=== PATIENT | male | born 2000 | race Caucasian/White ===

== ENCOUNTER 2023-05-27 08:04 | Emergency (ER) | payer SELFPAY ==
[2023-05-27 08:26] VITALS: TEMP 97.5
[2023-05-27] MEDS ORDERED: TORAdol 30 mg Injection IV ONE (09:07)
[2023-05-27] MEDS ORDERED: Sodium Chloride 0.9% 1000 ML 1,000 ML IV STA ×2 (09:07→10:26)
[2023-05-27] MEDS ORDERED: TORAdol 30 mg Injection ONE (09:12)
[2023-05-27] MEDS ORDERED: Sodium Chloride 0.9% 1000 ML 1,000 ML ONE ×2 (09:12→10:26)
[2023-05-27 09:25] LABS: Absolute Neutrophil Ct (ANC) 5.56 x10^3/uL (1.4-6.9); BASOPHIL % 0.7 % (0.0-0.4); Basophil (Absolute #) 0.07 x10^3/uL (0-0.4); Eosinophil % 1.8 % (0.00-5.0); Eosinophil (Absolute #) 0.17 x10^3/uL (0-0.5); Hematocrit 51.5 % (42-50); Hemoglobin 17.8 g/dL (12.5-18.0); IMMATURE GRAN # 0.04 x10^3u/L (0.00-0.03); IMMATURE GRAN % 0.4 % (0.00-0.4); Lymphocytes % 32.1 % (24.0-44.0); Mean Cell Volume 87.9 fL (78-100); Mean Corpuscular Hemoglobin 30.4 pg (26-32); Mean Corpuscular Hgb Concent. 34.6 g/dL (32-36); Mean Platelet Volume 10.5 fL (7.5-11.0); Monocyte (Absolute #) 0.73 x10^3/uL (0.0-1.3); Monocytes % 7.5 % (0.0-12.0); Neutrophil % 57.5 % (36.0-66.0); Platelet Count 235 x10^3/uL (150-450); Red Blood Count 5.86 x10^6/uL (4.1-5.6); Red Cell Distribution Width 11.9 % (11.5-14.0); White Blood Count 9.7 x10^3/uL (4.0-10.5)
[2023-05-27 09:35] LABS: ADD URINE CULTURE? NO (NO); Appearance Clear (Clear); Bacteria None Seen /HPF (None Seen); Bilirubin Negative (Negative); Blood Negative (Negative); Epithelial Cells None Seen /HPF (None Seen); Glucose, Urine >=1000 mg/dL (Negative); Hyaline Casts NONE SEEN /LPF (0-2); Ketones Negative (Negative); Leukocyte Esterase Negative (Negative); Nitrite Negative (Negative); Ph 5.5 (4.6-8.0); Protein,Urine Dip Negative (Negative); RBC 0-2 /HPF (0-5); Specific Gravity >=1.030 (1.005-1.030); Urobilinogen 0.2 mg/dL (0.2); WBC 0-2 /HPF (0-5)
[2023-05-27 09:40] LABS: ALBUMIN 4.9 g/dL (3.5-5.0); ANION GAP 20.2 MEQ/L (5-15); Calcium 9.7 mg/dL (8.4-10.2); Creatinine 1 0.62 mg/dL (0.66-1.25); EST GLOMERULAR FILTRATION RATE 138.6 ML/MIN; Potassium 3.6 mmol/L (3.5-5.1); Total Protein 8.5 g/dL (6.3-8.2)
--- NOTE | 2023-05-27 09:51 | ERPHSYRPT ---
- History of Present Illness Time Seen by Provider: 05/27/23 08:10 Historian: patient Exam Limitations: no limitations Patient Subjective Stated Complaint: C/O intermittent right flank pain for the past 2-3 days. Describes as pulsating and shooting. Triage Nursing Assessment: Patient ambulated back to ER without difficulties. No SOB. NO cough. Skin tone normal. Patient is alert and oriented. WORTHY WNL. Abdomen is soft with bowel sounds present. Patient denies pain or tenderness with palpation. Denies injury or trauma. Physician History: Patient is a 22-year-old male presents to our ED with his father for evaluation of intermittent right flank pain. Pain started approximately 2 to 3 days ago. Pain has been intermittent. Patient describes his pain as a pulsating sensation. No trauma no fever. No nausea vomiting or diaphoresis. Patient denies a history of the same. Father at bedside. He reports patient has a history of hypertension. Patient is otherwise healthy. They voiced no other complaints or concerns at this time. Portions of this note were created with voice recognition technology. There may be grammatical, spelling, punctuation or sound alike errors Timing/Duration: day(s) (2 to 3 days ago) Activities at Onset: none Quality: aching, other (Pulsating sensation) Abdominal Pain Onset Location: flank Pain Radiation: no radiation Severity of Pain-Max: moderate Severity of Pain-Current: mild Modifying Factors: Improves With: nothing Associated Symptoms: denies symptoms Previous symptoms: no prior history Allergies/Adverse Reactions: No Known Drug Allergies Allergy (Verified 05/27/23 08:12) Home Medications: No Reportable Medications [No Reported Medications] 05/27/23 [History] Hx Tetanus, Diphtheria Vaccination/Date Given: Yes Hx Influenza Vaccination/Date Given: No Hx Pneumococcal Vaccination/Date Given: No Immunizations Up to Date: Yes Travel Risk - International Travel Have you traveled outside of the country in past 3 weeks: No - Coronavirus Screening Are you exhibiting any of the following symptoms?: Yes Symptoms: Vomiting/Diarrhea Close contact with a COVID-19 positive Pt in past 14-21 Days: No - Vaccine Status Have you recieved a Covid-19 vaccination: No - Review of Systems Constitutional: No Symptoms, No Fever, No Chills Eyes: No Symptoms Ears, Nose, & Throat: No Symptoms Respiratory: No Symptoms, No Cough, No Dyspnea Cardiac: No Symptoms, No Chest Pain, No Edema, No Syncope Abdominal/Gastrointestinal: No Symptoms, No Abdominal Pain, No Nausea, No Vomiting, No Diarrhea Genitourinary Symptoms: No Symptoms, No Dysuria Musculoskeletal: No Symptoms, No Back Pain, No Neck Pain Skin: No Symptoms, No Rash Neurological: No Symptoms, No Dizziness, No Focal Weakness, No Sensory Changes Psychological: No Symptoms Endocrine: No Symptoms Hematologic/Lymphatic: No Symptoms Immunological/Allergic: No Symptoms All Other Systems: Reviewed and Negative - Past Medical History Pertinent Past Medical History: Yes Respiratory History: Asthma Other Medical History: lots of ear infections as a child - Past Surgical History Past Surgical History: Yes Other Surgical History: tubes in ears - Social History Smoking Status: Never smoker Exposure to second hand smoke: No Drug Use: none Patient Lives Alone: No - Nursing Vital Signs Nursing Vital Signs: Initial Vital Signs Temperature 97.5 F 05/27/23 08:04 Pulse Rate 100 H 05/27/23 08:04 Respiratory Rate 15 05/27/23 08:04 Blood Pressure 170/121 05/27/23 08:04 O2 Sat by Pulse Oximetry 98 05/27/23 08:04 Pain Scale Pain Intensity 0 - Physical Exam General Appearance: no apparent distress, alert Eye Exam: PERRL/EOMI, eyes nml inspection Ears, Nose, Throat Exam: normal ENT inspection, pharynx normal, moist mucous membranes Neck Exam: normal inspection, non-tender, supple, full range of motion Respiratory Exam: normal breath sounds, lungs clear, airway intact, No respiratory distress Cardiovascular Exam: regular rate/rhythm, normal heart sounds, normal peripheral pulses Gastrointestinal/Abdomen Exam: soft, No tenderness, No mass Back Exam: normal inspection, normal range of motion, No CVA tenderness, No vertebral tenderness Extremity Exam: normal inspection, normal range of motion, pelvis stable Neurologic Exam: alert, oriented x 3, cooperative, normal mood/affect, nml cerebellar function, sensation nml, No motor deficits Skin Exam: normal color, warm, dry SpO2 Interpretation: normal SpO2: 96 O2 Delivery: Room Air - Course Nursing assessment & vital signs reviewed: Yes - CT Exams Abdomen/Pelvis CT Interpretation: Tele-radiologist Report (Mild diffuse fatty liver. No renal calculus or ureteral lithiasis observed. CT abdomen pelvis otherwise negative.) Ordered Tests: Active Orders 24 hr Category Date Time Status IV Insertion STAT Care 05/27/23 09:07 Active ABDOMEN AND PELVIS W/0 CONTRAS [CT] Stat Exams 05/27/23 09:08 Completed CBC W DIFF Stat Lab 05/27/23 09:07 Completed CMP Stat Lab 05/27/23 08:28 Completed CMP Stat Lab 05/27/23 11:30 Completed LIPASE Stat Lab 05/27/23 08:28 Completed TROPONIN Q4H Lab 05/27/23 08:28 Completed TROPONIN Q4H Lab 05/27/23 13:15 Ordered TROPONIN Q4H Lab 05/27/23 17:15 Ordered UA W/RFX UR CULTURE Stat Lab 05/27/23 09:08 Completed Medication Summary Discontinued Medications Generic Name Dose Route Start Last Admin Trade Name Freq PRN Reason Stop Dose Admin Sodium Chloride 1,000 mls @ 999 mls/hr 05/27/23 09:07 05/27/23 10:17 Sodium Chloride 0.9% 1000 Ml IV 05/27/23 10:07 Infused .Q1H1M STA Infusion Sodium Chloride Confirm 05/27/23 09:12 Sodium Chloride 0.9% 1000 Ml Administered 05/27/23 09:13 Dose 1,000 mls @ ud .ROUTE .STK-MED ONE Sodium Chloride 1,000 mls @ 999 mls/hr 05/27/23 10:26 05/27/23 11:29 Sodium Chloride 0.9% 1000 Ml IV 05/27/23 11:26 Infused .Q1H1M STA Infusion Sodium Chloride Confirm 05/27/23 10:26 Sodium Chloride 0.9% 1000 Ml Administered 05/27/23 10:27 Dose 1,000 mls @ ud .ROUTE .STK-MED ONE Ketorolac Tromethamine 30 mg 05/27/23 09:07 05/27/23 09:17 Ketorolac Tromethamine 30 Mg/Ml Inj IV 05/27/23 09:08 30 mg STAT ONE Administration Ketorolac Tromethamine Confirm 05/27/23 09:12 Ketorolac Tromethamine 30 Mg/Ml Inj Administered 05/27/23 09:13 Dose 30 mg .ROUTE .STK-MED ONE Lab/Rad Data: Laboratory Result Diagrams 05/27/23 09:07 05/27/23 11:30 Laboratory Results 05/27/23 05/27/23 05/27/23 Range/Units 11:30 09:08 09:07 WBC 9.7 (4.0-10.5) x10^3/uL RBC 5.86 H (4.1-5.6) x10^6/uL Hgb 17.8 (12.5-18.0) g/dL Hct 51.5 H (42-50) % MCV 87.9 (78-100) fL MCH 30.4 (26-32) pg MCHC 34.6 (32-36) g/dL RDW 11.9 (11.5-14.0) % Plt Count 235 (150-450) x10^3/uL MPV 10.5 (7.5-11.0) fL Gran % 57.5 (36.0-66.0) % Immature Gran % (Auto) 0.4 (0.00-0.4) % Nucleat RBC Rel Count 0.0 (0.00-0.1) % Eos # (Auto) 0.17 (0-0.5) x10^3/uL Immature Gran # (Auto) 0.04 H (0.00-0.03) x10^3u/L Absolute Lymphs (auto) 3.10 (1.0-4.6) x10^3/uL Absolute Monos (auto) 0.73 (0.0-1.3) x10^3/uL Absolute Nucleated RBC 0.00 (0.00-0.01) x10^3u/L Lymphocytes % 32.1 (24.0-44.0) % Monocytes % 7.5 (0.0-12.0) % Eosinophils % 1.8 (0.00-5.0) % Basophils % 0.7 (0.0-0.4) % Absolute Granulocytes 5.56 (1.4-6.9) x10^3/uL Basophils # 0.07 (0-0.4) x10^3/uL Sodium 137 (137-145) mmol/L Potassium 3.9 (3.5-5.1) mmol/L Chloride 105 (98-107) mmol/L Carbon Dioxide 24 (22-30) mmol/L Anion Gap 12.4 (5-15) MEQ/L BUN 8 L (9-20) mg/dL Creatinine 0.49 L (0.66-1.25) mg/dL Estimated GFR 148.8 ML/MIN Glucose 258 H (74-106) mg/dL Calcium 8.6 (8.4-10.2) mg/dL Total Bilirubin 1.90 H (0.2-1.3) mg/dL AST 25 (17-59) U/L ALT 44 (0-50) U/L Alkaline Phosphatase 96 (38-126) U/L Troponin I (0.000-0.034) ng/mL Serum Total Protein 7.0 (6.3-8.2) g/dL Albumin 4.0 (3.5-5.0) g/dL Lipase (23-300) U/L Urine Color Yellow (Yellow) Urine Appearance Clear (Clear) Urine pH 5.5 (4.6-8.0) Ur Specific [place] >=1.030 A (1.005-1.030) Urine Protein Negative (Negative) Urine Glucose (UA) >=1000 A (Negative) mg/dL Urine Ketones Negative (Negative) Urine Blood Negative (Negative) Urine Nitrite Negative (Negative) Urine Bilirubin Negative (Negative) Urine Urobilinogen 0.2 (0.2) mg/dL Ur Leukocyte Esterase Negative (Negative) U Hyaline Cast (Auto) NONE SEEN (0-2) /LPF Urine Microscopic RBC 0-2 (0-5) /HPF Urine Microscopic WBC 0-2 (0-5) /HPF Ur Epithelial Cells None Seen (None Seen) /HPF Urine Bacteria None Seen (None Seen) /HPF Urine Culture Reflexed NO (NO) 05/27/23 05/27/23 Range/Units 08:28 08:28 WBC (4.0-10.5) x10^3/uL RBC (4.1-5.6) x10^6/uL Hgb (12.5-18.0) g/dL Hct (42-50) % MCV (78-100) fL MCH (26-32) pg MCHC (32-36) g/dL RDW (11.5-14.0) % Plt Count (150-450) x10^3/uL MPV (7.5-11.0) fL Gran % (36.0-66.0) % Immature Gran % (Auto) (0.00-0.4) % Nucleat RBC Rel Count (0.00-0.1) % Eos # (Auto) (0-0.5) x10^3/uL Immature Gran # (Auto) (0.00-0.03) x10^3u/L Absolute Lymphs (auto) (1.0-4.6) x10^3/uL Absolute Monos (auto) (0.0-1.3) x10^3/uL Absolute Nucleated RBC (0.00-0.01) x10^3u/L Lymphocytes % (24.0-44.0) % Monocytes % (0.0-12.0) % Eosinophils % (0.00-5.0) % Basophils % (0.0-0.4) % Absolute Granulocytes (1.4-6.9) x10^3/uL Basophils # (0-0.4) x10^3/uL Sodium 136 L (137-145) mmol/L Potassium 3.6 (3.5-5.1) mmol/L Chloride 95 L (98-107) mmol/L Carbon Dioxide 24 (22-30) mmol/L Anion Gap 20.2 H (5-15) MEQ/L BUN 9 (9-20) mg/dL Creatinine 0.62 L (0.66-1.25) mg/dL Estimated GFR 138.6 ML/MIN Glucose 377 H (74-106) mg/dL Calcium 9.7 (8.4-10.2) mg/dL Total Bilirubin 2.00 H (0.2-1.3) mg/dL AST 29 (17-59) U/L ALT 54 H (0-50) U/L Alkaline Phosphatase 120 (38-126) U/L Troponin I < 0.012 (0.000-0.034) ng/mL Serum Total Protein 8.5 H (6.3-8.2) g/dL Albumin 4.9 (3.5-5.0) g/dL Lipase 66 (23-300) U/L Urine Color (Yellow) Urine Appearance (Clear) Urine pH (4.6-8.0) Ur Specific [place] (1.005-1.030) Urine Protein (Negative) Urine Glucose (UA) (Negative) mg/dL Urine Ketones (Negative) Urine Blood (Negative) Urine Nitrite (Negative) Urine Bilirubin (Negative) Urine Urobilinogen (0.2) mg/dL Ur Leukocyte Esterase (Negative) U Hyaline Cast (Auto) (0-2) /LPF Urine Microscopic RBC (0-5) /HPF Urine Microscopic WBC (0-5) /HPF Ur Epithelial Cells (None Seen) /HPF Urine Bacteria (None Seen) /HPF Urine Culture Reflexed (NO) - Progress Progress: improved Progress Note: 22-year-old male presents to our ED for evaluation of abdominal pain. CT abdomen pelvis sensory nonremarkable. Laboratory workup reveals a glucose of 377 with an anion gap of 20. Patient's blood pressure was observed to be elevated. Urinalysis revealed dehydration with an elevated specific gravity. Patient received 2 L normal saline. Anion gap improved to 12.4. Blood sugar decreased to 258. Patient reassessed. He is asymptomatic. I spoke to Dr. Govea patient's primary care doctor at 1230. She will see patient in the office tomorrow. Per her request we held off on metformin. Patient agrees to follow-up tomorrow as discussed. He voices no other complaints or concerns at this time. Portions of this note were created with voice recognition technology. There may be grammatical, spelling, punctuation or sound alike errors Complexity of problems addressed is moderate acute complicated No critical care time Complex of data reviewed and analyzed is extensive. Test ordered test reviewed. Results analyzed and correlated clinically. Management discussed with patient's primary care provider Dr. Govea who will see patient in the office tomorrow. Risk of complication and or risk of morbidity/mortality of patient management is low. Time spent to discharge patient is approximately 10 minutes. Vital stable. Plan of care established for shared decision making. No social determinants of health present impede follow-up. Portions of this note were created with voice recognition technology. There may be grammatical, spelling, punctuation or sound alike errors 05/27/23 12:[address] Other (Hilario at 12:30 PM) Will see patient in: office Counseled pt/family regarding: lab results, diagnosis, need for follow-up, rad results - Departure Departure Disposition: Home Clinical Impression: Dehydration, Glucosuria, Hypertension, High anion gap metabolic acidosis, Fatty liver Condition: Stable Critical Care Time: No Referrals: DOCTOR,NO FAMILY [Primary Care Provider] - Follow up/PCP as directed DARSHAN GOVEA DO [ACTIVE STAFF] - Follow up/PCP as directed Additional Instructions: There is a free diabetic education class here at [facility] on 08/14/23 from 1pm to 3pm. Contact Jo Ann Gutierrez to attend. Number [phone] extension [phone]. Discharge/Care Plan RONALD GARIBAY was seen on 05/27/23 in the Emergency Room. The patient was counseled regarding Diagnosis,Lab results, Imaging studies, need for follow up and when to return to the Emergency Room. Prescriptions given: Discharge Note I have spoken with the patient and/or caregivers. I have explained the patient's condition, diagnosis and treatment plan based on the information available to me at this time. I have answered the patient's and/or caregiver's questions and addressed any concerns. The patient and/or caregivers have as good understanding of the patient's diagnosis, condition and treatment plan as can be expected at this point. The vital signs have been stable. The patient's condition is stable and appropriate for discharge from the emergency department. The patient will pursue further outpatient evaluation with the primary care physician or other designated or consulting physician as outlined in the discharge instructions. The patient and/or caregivers are agreeable to this plan of care and follow-up instructions have been explained in detail. The patient and/or caregivers have received these instruction. The patient/and or caregivers are aware that any significant change in condition or worsening of symptoms should prompt an immediate return to this or the closest emergency department or call 911.
--- NOTE | 2023-05-27 09:56 | XRAY ---
Indication: Right lower quadrant pain. Vomiting and diarrhea. Multiple contiguous axial images obtained through the abdomen and pelvis without contrast using renal stone protocol. Comparison: None Lung bases clear. Heart not enlarged. No renal calculus or evidence for obstructive uropathy in either system. Noncontrasted stomach and bowel loops appear nonobstructed with normal appearing appendix. Mild diffuse fatty liver. No free fluid/air. Remaining liver, gallbladder, pancreas, spleen, adrenal glands, kidneys, ureters, bladder, and aorta are unremarkable for noncontrast exam. Osseous structures intact. Impression: 1. Negative renal calculus or evidence for obstructive uropathy. 2. Mild fatty liver. 3. Remaining CT abdomen/pelvis without contrast exam is negative.
[2023-05-27 10:37] VITALS: RESP 18
[2023-05-27 11:55] LABS: ANION GAP 12.4 MEQ/L (5-15); BILIRUBIN,TOTAL 1.9 mg/dL (0.2-1.3); Calcium 8.6 mg/dL (8.4-10.2); Creatinine 1 0.49 mg/dL (0.66-1.25); EST GLOMERULAR FILTRATION RATE 148.8 ML/MIN; Potassium 3.9 mmol/L (3.5-5.1)
[2023-05-27 12:03] VITALS: BP 162/104; PULSE 84
[2023-05-27 12:35] VITALS: O2SAT 96
== END 2023-05-27 12:43 | disposition home or self-care (01) ==
LOC: ED 08:04
DX: E86.0 Dehydration (principal); R81 Glycosuria; I10 Essential (primary) hypertension; E87.20 Acidosis, unspecified; K76.0 Fatty (change of) liver, not elsewhere classified; R10.9 Unspecified abdominal pain; Z28.310 Unvaccinated for COVID-19
CPT/HCPCS: 36000; 36415; 74176; 80053; 81001; 83690; 84484; 85025; 96360; 96361; 96374; 99284; J1885

== ENCOUNTER 2023-12-20 08:34 | Emergency (ER) | payer OTHER ==
--- NOTE | 2023-12-20 08:39 | ERPHSYRPT ---
- History of Present Illness Time Seen by Provider: 12/20/23 08:38 Source: patient Exam Limitations: no limitations Physician History: The patient presents after ingesting a handful of their 10mg lisinopril tablets approximately 50 minutes prior to arrival. They report feeling 'really hot' but deny chest pain, headache, nausea, and vomiting. The patient has been experie ncing significant life stressors, including their girlfriend being evicted by his father. They admit to having had suicidal thoughts in the past but deny previous suicide attempts. The patient has not eaten or drunk anything since midnight the previous night. When is asked if patient currently has SI he states he is unsure. Patient is willing to talk to telepsych. Timing/Duration: today Severity of Symptoms-Max: mild Severity of Symptoms-Current: mild Context related to: significant other, living circumstances Suicidal thoughts: attempt, ingestion Associated Symptoms: depressed, ingestion, No angry, No agitated, No hostile Previous symptoms: no prior history Allergies/Adverse Reactions: No Known Drug Allergies Allergy (Verified 12/20/23 08:38) Home Medications: Lisinopril 10 mg [Zestril 10 MG] 10 mg PO DAILY 12/20/23 [History] Metformin HCl 500 mg [Glucophage 500 MG] 500 mg PO BID 12/20/23 [History] Hx Tetanus, Diphtheria Vaccination/Date Given: Yes Hx Influenza Vaccination/Date Given: No Hx Pneumococcal Vaccination/Date Given: No - Past Medical History Pertinent Past Medical History: Yes Respiratory History: Asthma Other Medical History: lots of ear infections as a child - Past Surgical History Past Surgical History: Yes Other Surgical History: tubes in ears - Social History Smoking Status: Never smoker Exposure to second hand smoke: No Drug Use: none Patient Lives Alone: No - Review of Systems All Other Systems: Reviewed and Negative - Nursing Vital Signs Nursing Vital Signs: Initial Vital Signs Temperature 96.6 F 12/20/23 08:35 Pulse Rate 78 12/20/23 08:35 Respiratory Rate 18 12/20/23 08:35 Blood Pressure 204/111 12/20/23 08:35 O2 Sat by Pulse Oximetry 100 12/20/23 08:35 Pain Scale Pain Intensity 0 - Physical Exam General Appearance: no apparent distress Eyes, Ears, Nose, Throat Exam: normal ENT inspection Neck Exam: normal inspection Respiratory Exam: normal breath sounds, lungs clear, airway intact, No respiratory distress Cardiovascular Exam: regular rate/rhythm, normal heart sounds, capillary refill <2 sec Gastrointestinal/Abdominal Exam: soft, No tenderness, No distention, No mass, No guarding Extremities Exam: normal inspection Neurological Exam: alert, oriented x 3, depressed affect Appearance: appropriate appearance, impaired insight Behavior/Eye Contact/Speech: alert & cooperative, avoids eye contact, decreased rate of speech Thoughts/Hallucinations: no apparent hallucination Skin Exam: normal color, warm, dry, No rash SpO2 Interpretation: normal O2 Delivery: Room Air - Course Nursing assessment & vital signs reviewed: Yes EKG Interpreted by Me: RATE (90), NORMAL AXIS, NORMAL INTERVALS, NORMAL QRS, NORMAL ST-T Ordered Tests: Active Orders 24 hr Category Date Time Status 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 Care 12/20/23 08:42 Active EKG-ER Only STAT Care 12/20/23 08:39 Active IV Insertion STAT Care 12/20/23 08:39 Active Psychiatric Consult STAT Cons 12/20/23 08:39 Active ACETAMINOPHEN Stat Lab 12/20/23 08:57 Completed CBC W DIFF Stat Lab 12/20/23 08:57 Completed CMP Stat Lab 12/20/23 08:57 Completed ETHYL ALCOHOL Stat Lab 12/20/23 08:57 Completed POCT GLUCOSE Stat Lab 12/20/23 08:42 Completed POCT GLUCOSE Stat Lab 12/20/23 10:43 Completed POCT GLUCOSE Stat Lab 12/20/23 12:24 Completed POCT GLUCOSE Stat Lab 12/20/23 14:25 Completed SALICYLATE Stat Lab 12/20/23 08:57 Completed UA W/RFX UR CULTURE Stat Lab 12/20/23 09:49 Completed Urine Triage Profile Stat Lab 12/20/23 09:49 Completed Medication Summary Generic Name Dose Route Start Last Admin Trade Name Freq PRN Reason Stop Dose Admin Hydrochlorothiazide 50 mg 12/21/23 15:35 12/20/23 15:59 Hydrochlorothiazide 25 Mg Tablet PO 12/21/23 15:36 Not Given ONCE ONE Triamterene/Hydrochlorothiazide 2 tab 12/21/23 15:59 12/20/23 15:59 Triamterene/Hydrochlorothiazide 37.5/25mg 1 Tablet PO 12/21/23 16:00 2 tab NOW ONE Administration Discontinued Medications Generic Name Dose Route Start Last Admin Trade Name Anthony PRN Reason Stop Dose Admin Sodium Chloride 1,000 mls @ 999 mls/hr 12/20/23 08:39 12/20/23 09:55 Sodium Chloride 0.9% 1000 Ml IV 12/20/23 09:39 Infused .Q1H1M STA Infusion Sodium Chloride Confirm 12/20/23 08:51 Sodium Chloride 0.9% 1000 Ml Administered 12/20/23 08:52 Dose 1,000 mls @ ud .ROUTE .STK-MED ONE Insulin Human Lispro 6 unit 12/20/23 09:36 12/20/23 09:41 Insulin Lispro 1 Unit SQ 12/20/23 09:37 6 unit STAT ONE Administration Insulin Human Lispro Confirm 12/20/23 09:40 Insulin Lispro 1 Unit Administered 12/20/23 09:41 Dose 6 unit .ROUTE .STK-MED ONE Insulin Human Lispro 8 unit 12/20/23 12:25 12/20/23 12:32 Insulin Lispro 1 Unit SQ 12/20/23 12:26 8 unit STAT ONE Administration Insulin Human Lispro Confirm 12/20/23 12:32 Insulin Lispro 1 Unit Administered 12/20/23 12:33 Dose 8 unit .ROUTE .STK-MED ONE Triamterene/Hydrochlorothiazide Confirm 12/20/23 15:54 Triamterene/Hydrochlorothiazide 37.5/25mg 1 Tablet Administered 12/20/23 15:55 Dose 2 tab .ROUTE .STK-MED ONE Lab/Rad Data: Laboratory Result Diagrams 12/20/23 08:57 12/20/23 08:57 Laboratory Results 12/20/23 12/20/23 12/20/23 Range/Units 14:25 12:24 10:43 WBC (4.23-9.07) x10^3/uL RBC (4.63-6.08) x10^6/uL Hgb (13.7-17.5) g/dL Hct (40.1-51.0) % MCV (79.0-92.2) fL MCH (25.7-32.2) pg MCHC (32.3-36.5) g/dL RDW (11.6-14.4) % Plt Count (163-337) x10^3/uL MPV (9.4-12.4) fL Gran % (34.0-67.9) % Immature Gran % (Auto) (0.001-0.429) % Nucleat RBC Rel Count (0.00-0.2) % Eos # (Auto) (0.04-0.54) x10^3/uL Immature Gran # (Auto) (0.001-0.031) x10^3u/L Absolute Lymphs (auto) (1.32-3.57) x10^3/uL Absolute Monos (auto) (0.30-0.82) x10^3/uL Absolute Nucleated RBC (0.00-0.012) x10^3u/L Lymphocytes % (21.8-53.1) % Monocytes % (5.3-12.2) % Eosinophils % (0.8-7.0) % Basophils % (0.2-1.2) % Absolute Granulocytes (1.78-5.38) x10^3/uL Basophils # (0.01-0.08) x10^3/uL Sodium (135-145) mmol/L Potassium (3.5-5.1) mmol/L Chloride (98-107) mmol/L Carbon Dioxide (22-30) mmol/L Anion Gap (5-15) MEQ/L BUN (9-20) mg/dL Creatinine (0.66-1.25) mg/dL Estimated GFR ML/MIN Glucose (74-106) mg/dL POC Glucometer 213 H 290 H 301 H (74 to 106) mg/dL Hemoglobin A1c (4.5-6.0) % Calcium (8.4-10.2) mg/dL Total Bilirubin (0.2-1.3) mg/dL AST (17-59) U/L ALT (0-50) U/L Alkaline Phosphatase (38-126) U/L Serum Total Protein (6.3-8.2) g/dL Albumin (3.5-5.0) g/dL Urine Color (Yellow) Urine Appearance (Clear) Urine pH (4.6-8.0) Ur Specific Dow (1.005-1.030) Urine Protein (Negative) Urine Glucose (UA) (Negative) mg/dL Urine Ketones (Negative) Urine Blood (Negative) Urine Nitrite (Negative) Urine Bilirubin (Negative) Urine Urobilinogen (0.2) mg/dL Ur Leukocyte Esterase (Negative) U Hyaline Cast (Auto) (0-2) /LPF Urine Microscopic RBC (0-5) /HPF Urine Microscopic WBC (0-5) /HPF Ur Epithelial Cells (None Seen) /HPF Urine Bacteria (None Seen) /HPF Urine Culture Reflexed (NO) Salicylates (2-20) mg/dL Urine Opiates Level (NEGATIVE) Ur Methadone (NEGATIVE) Acetaminophen (10-30) ug/ml Urine Barbiturates (NEGATIVE) Ur Phencyclidine (PCP) (NEGATIVE) Urine Amphetamine (NEGATIVE) U Benzodiazepine Level (NEGATIVE) Urine Cocaine (NEGATIVE) Urine Marijuana (THC) (NEGATIVE) Ethyl Alcohol (0-10) mg/dL 12/20/23 12/20/23 12/20/23 Range/Units 09:49 09:49 08:57 WBC (4.23-9.07) x10^3/uL RBC (4.63-6.08) x10^6/uL Hgb (13.7-17.5) g/dL Hct (40.1-51.0) % MCV (79.0-92.2) fL MCH (25.7-32.2) pg MCHC (32.3-36.5) g/dL RDW (11.6-14.4) % Plt Count (163-337) x10^3/uL MPV (9.4-12.4) fL Gran % (34.0-67.9) % Immature Gran % (Auto) (0.001-0.429) % Nucleat RBC Rel Count (0.00-0.2) % Eos # (Auto) (0.04-0.54) x10^3/uL Immature Gran # (Auto) (0.001-0.031) x10^3u/L Absolute Lymphs (auto) (1.32-3.57) x10^3/uL Absolute Monos (auto) (0.30-0.82) x10^3/uL Absolute Nucleated RBC (0.00-0.012) x10^3u/L Lymphocytes % (21.8-53.1) % Monocytes % (5.3-12.2) % Eosinophils % (0.8-7.0) % Basophils % (0.2-1.2) % Absolute Granulocytes (1.78-5.38) x10^3/uL Basophils # (0.01-0.08) x10^3/uL Sodium (135-145) mmol/L Potassium (3.5-5.1) mmol/L Chloride (98-107) mmol/L Carbon Dioxide (22-30) mmol/L Anion Gap (5-15) MEQ/L BUN (9-20) mg/dL Creatinine (0.66-1.25) mg/dL Estimated GFR ML/MIN Glucose (74-106) mg/dL POC Glucometer (74 to 106) mg/dL Hemoglobin A1c 9.78 H (4.5-6.0) % Calcium (8.4-10.2) mg/dL Total Bilirubin (0.2-1.3) mg/dL AST (17-59) U/L ALT (0-50) U/L Alkaline Phosphatase (38-126) U/L Serum Total Protein (6.3-8.2) g/dL Albumin (3.5-5.0) g/dL Urine Color Yellow (Yellow) Urine Appearance Clear (Clear) Urine pH 6.0 (4.6-8.0) Ur Specific Dow 1.025 (1.005-1.030) Urine Protein Negative (Negative) Urine Glucose (UA) >=1000 A (Negative) mg/dL Urine Ketones Negative (Negative) Urine Blood Negative (Negative) Urine Nitrite Negative (Negative) Urine Bilirubin Negative (Negative) Urine Urobilinogen 1.0 A (0.2) mg/dL Ur Leukocyte Esterase Negative (Negative) U Hyaline Cast (Auto) NONE SEEN (0-2) /LPF Urine Microscopic RBC 0-2 (0-5) /HPF Urine Microscopic WBC 0-2 (0-5) /HPF Ur Epithelial Cells None Seen (None Seen) /HPF Urine Bacteria None Seen (None Seen) /HPF Urine Culture Reflexed NO (NO) Salicylates (2-20) mg/dL Urine Opiates Level NEGATIVE (NEGATIVE) Ur Methadone NEGATIVE (NEGATIVE) Acetaminophen (10-30) ug/ml Urine Barbiturates NEGATIVE (NEGATIVE) Ur Phencyclidine (PCP) NEGATIVE (NEGATIVE) Urine Amphetamine NEGATIVE (NEGATIVE) U Benzodiazepine Level NEGATIVE (NEGATIVE) Urine Cocaine NEGATIVE (NEGATIVE) Urine Marijuana (THC) NEGATIVE (NEGATIVE) Ethyl Alcohol (0-10) mg/dL 12/20/23 12/20/23 12/20/23 Range/Units 08:57 08:57 08:42 WBC 6.6 (4.23-9.07) x10^3/uL RBC 4.92 (4.63-6.08) x10^6/uL Hgb 15.2 (13.7-17.5) g/dL Hct 43.7 (40.1-51.0) % MCV 88.8 (79.0-92.2) fL MCH 30.9 (25.7-32.2) pg MCHC 34.8 (32.3-36.5) g/dL RDW 12.2 (11.6-14.4) % Plt Count 195 (163-337) x10^3/uL MPV 9.5 (9.4-12.4) fL Gran % 54.3 (34.0-67.9) % Immature Gran % (Auto) 0.3 (0.001-0.429) % Nucleat RBC Rel Count 0.0 (0.00-0.2) % Eos # (Auto) 0.16 (0.04-0.54) x10^3/uL Immature Gran # (Auto) 0.02 (0.001-0.031) x10^3u/L Absolute Lymphs (auto) 2.18 (1.32-3.57) x10^3/uL Absolute Monos (auto) 0.56 (0.30-0.82) x10^3/uL Absolute Nucleated RBC 0.00 (0.00-0.012) x10^3u/L Lymphocytes % 33.1 (21.8-53.1) % Monocytes % 8.5 (5.3-12.2) % Eosinophils % 2.4 (0.8-7.0) % Basophils % 1.4 H (0.2-1.2) % Absolute Granulocytes 3.57 (1.78-5.38) x10^3/uL Basophils # 0.09 H (0.01-0.08) x10^3/uL Sodium 138 (135-145) mmol/L Potassium 3.4 L (3.5-5.1) mmol/L Chloride 103 (98-107) mmol/L Carbon Dioxide 29 (22-30) mmol/L Anion Gap 10.3 (5-15) MEQ/L BUN 8 L (9-20) mg/dL Creatinine 0.63 L (0.66-1.25) mg/dL Estimated GFR 137.1 ML/MIN Glucose 261 H (74-106) mg/dL POC Glucometer 232 H (74 to 106) mg/dL Hemoglobin A1c (4.5-6.0) % Calcium 9.2 (8.4-10.2) mg/dL Total Bilirubin 1.50 H (0.2-1.3) mg/dL AST 35 (17-59) U/L ALT 43 (0-50) U/L Alkaline Phosphatase 76 (38-126) U/L Serum Total Protein 6.5 (6.3-8.2) g/dL Albumin 3.9 (3.5-5.0) g/dL Urine Color (Yellow) Urine Appearance (Clear) Urine pH (4.6-8.0) Ur Specific Dow (1.005-1.030) Urine Protein (Negative) Urine Glucose (UA) (Negative) mg/dL Urine Ketones (Negative) Urine Blood (Negative) Urine Nitrite (Negative) Urine Bilirubin (Negative) Urine Urobilinogen (0.2) mg/dL Ur Leukocyte Esterase (Negative) U Hyaline Cast (Auto) (0-2) /LPF Urine Microscopic RBC (0-5) /HPF Urine Microscopic WBC (0-5) /HPF Ur Epithelial Cells (None Seen) /HPF Urine Bacteria (None Seen) /HPF Urine Culture Reflexed (NO) Salicylates < 1.0 L (2-20) mg/dL Urine Opiates Level (NEGATIVE) Ur Methadone (NEGATIVE) Acetaminophen < 10 L (10-30) ug/ml Urine Barbiturates (NEGATIVE) Ur Phencyclidine (PCP) (NEGATIVE) Urine Amphetamine (NEGATIVE) U Benzodiazepine Level (NEGATIVE) Urine Cocaine (NEGATIVE) Urine Marijuana (THC) (NEGATIVE) Ethyl Alcohol < 10 (0-10) mg/dL - Progress Progress: unchanged Progress Note: Lisinopril Overdose: Ingested a handful of 10mg Lisinopril tablets approximately 50 minutes prior to presentation. Currently asymptomatic with a high blood pressure. Reports feeling hot. -Monitor vital signs closely, particularly blood pressure. -Start IV fluids. -Prepare to administer medications to support blood pressure if needed. -Consult with poison control for further recommendations. -Recommended 4 hours of monitoring, labs, IVF, meds as needed to support BP. Suicidal Ideation: Reports ongoing stressors and recent suicidal ideation. No prior attempts. He does have access to firearms at home, but says he would never use for this. -Consult with [facility] for a psychological evaluation. -Provide supportive care and ensure patient safety. 12/20/23 09:37 Patient's serum glucose level was 261 he was recently diagnosed with type 2 diabetes and started on metformin, but has not been taking due to medication side effects. He is insulin jasmine. I will give 6 units of insulin lispro at this time. Acetaminophen, salicylate and alcohol levels are all negative. CBC is within normal limits. CMP remarkable for an elevated bilirubin at 1.5 without elevation of transaminases. Kidney function is within normal limits. No other acute abnormalities noted on CMP. Last blood pressure was 149/95 with a heart rate of 89 saturating at 97% on room air. Patient continues to have no symptoms. 12/20/23 12:29 Repeat [id number] glucose testing 290 will order 8 units of lispro sliding scale. 12/20/23 13:21 At 1320 Poison control called and closed the case as the patient has remained vitally stable. 12/20/23 13:48 Recommendation from [facility] was inpatient hospitalization due to his current suicidal ideation with attempt. Patient was not agreeable to voluntary placement so an ED was obtained. Patient has been accepted at [facility] for inpatient stay. He is medically cleared at this time to go once we have transportation available. Counseled pt/family regarding: lab results, diagnosis, need for follow-up Medical Desision Making - Diagnostic Testing Diagnostic test were ordered, analyzed, and reviewed by me: Yes Radiological Interpretation: Interpreted by me - Risk of complications The pt has a mod risk of morbidity or mortality based on: Need for prescription drug management The pt has a high risk of morbidity or mortality based on: Decision regarding hospitilization or escalation of hosp level of care - Departure Departure Disposition: Transfer Clinical Impression: Suicide attempt, Depression, Suicidal ideations Condition: Stable Critical Care Time: No Referrals: DOCTOR,NO FAMILY [Primary Care Provider] - Follow up/PCP as directed Instructions: Depression in adults
[2023-12-20] MEDS ORDERED: Sodium Chloride 0.9% 1000 ML 1,000 ML ONE (08:51)
[2023-12-20] MEDS: Sodium Chloride 0.9% 1000 ML 1,000 ML IV STA (08:52)
[2023-12-20 08:54] VITALS: TEMP 96.6
[2023-12-20 08:56] LABS: Absolute Neutrophil Ct (ANC) 3.57 x10^3/uL (1.78-5.38); BASOPHIL % 1.4 % (0.2-1.2); Basophil (Absolute #) 0.09 x10^3/uL (0.01-0.08); Eosinophil % 2.4 % (0.8-7.0); Eosinophil (Absolute #) 0.16 x10^3/uL (0.04-0.54); Hematocrit 43.7 % (40.1-51.0); Hemoglobin 15.2 g/dL (13.7-17.5); IMMATURE GRAN # 0.02 x10^3u/L (0.001-0.031); IMMATURE GRAN % 0.3 % (0.001-0.429); Lymphocyte (Absolute #) 2.18 x10^3/uL (1.32-3.57); Lymphocytes % 33.1 % (21.8-53.1); Mean Cell Volume 88.8 fL (79.0-92.2); Mean Corpuscular Hemoglobin 30.9 pg (25.7-32.2); Mean Corpuscular Hgb Concent. 34.8 g/dL (32.3-36.5); Mean Platelet Volume 9.5 fL (9.4-12.4); Monocyte (Absolute #) 0.56 x10^3/uL (0.30-0.82); Monocytes % 8.5 % (5.3-12.2); Neutrophil % 54.3 % (34.0-67.9); Platelet Count 195 x10^3/uL (163-337); Red Blood Count 4.92 x10^6/uL (4.63-6.08); Red Cell Distribution Width 12.2 % (11.6-14.4); White Blood Count 6.6 x10^3/uL (4.23-9.07)
[2023-12-20 09:11] LABS: ACETAMINOPHEN < 10 ug/ml (10-30); ALBUMIN 3.9 g/dL (3.5-5.0); ALKALINE PHOSPHATASE 76 U/L (38-126); ANION GAP 10.3 MEQ/L (5-15); BLOOD UREA NITROGEN 8 mg/dL (9-20); CHLORIDE 103 mmol/L (98-107); Calcium 9.2 mg/dL (8.4-10.2); Carbon Dioxide 29 mmol/L (22-30); Creatinine 1 0.63 mg/dL (0.66-1.25); EST GLOMERULAR FILTRATION RATE 137.1 ML/MIN; ETHYL ALCOHOL < 10 mg/dL (0-10); Glucose 261 mg/dL (74-106); Potassium 3.4 mmol/L (3.5-5.1); SALICYLATE < 1.0 mg/dL (2-20); SGOT/AST 35 U/L (17-59); SGPT/ALT 43 U/L (0-50); SODIUM 138 mmol/L (135-145); Total Protein 6.5 g/dL (6.3-8.2)
[2023-12-20] MEDS ORDERED: HUMALOG ONE ×2 (09:40→12:32)
[2023-12-20] MEDS: HUMALOG SQ ONE ×2 (09:41→12:32)
[2023-12-20 10:01] LABS: Appearance Clear (Clear); Bacteria None Seen /HPF (None Seen); Bilirubin Negative (Negative); Blood Negative (Negative); Epithelial Cells None Seen /HPF (None Seen); Glucose, Urine >=1000 mg/dL (Negative); Hyaline Casts NONE SEEN /LPF (0-2); Ketones Negative (Negative); Leukocyte Esterase Negative (Negative); Nitrite Negative (Negative); Protein,Urine Dip Negative (Negative); RBC 0-2 /HPF (0-5); Specific Gravity 1.025 (1.005-1.030); WBC 0-2 /HPF (0-5)
[2023-12-20 10:05] LABS: ADD URINE CULTURE? NO (NO)
[2023-12-20 10:12] LABS: Amphetamine,Urine NEGATIVE (NEGATIVE); Barbiturate,Urine NEGATIVE (NEGATIVE); Benzodiazepine,Urine NEGATIVE (NEGATIVE); Cocaine,Urine NEGATIVE (NEGATIVE); Methadone,Urine NEGATIVE (NEGATIVE); Opiate,Urine NEGATIVE (NEGATIVE); PCP,Urine NEGATIVE (NEGATIVE); THC,Urine NEGATIVE (NEGATIVE)
[2023-12-20] MEDS ORDERED: Maxzide-25MG Tablet ONE (15:54)
[2023-12-20] MEDS: hydroDIURIL 25 MG PO ONE (15:59)
[2023-12-20] MEDS: Maxzide-25MG Tablet PO ONE (15:59)
[2023-12-20 16:23] VITALS: BP 131/100; PULSE 83; RESP 21; O2SAT 97
== END 2023-12-20 16:34 ==
LOC: ED 08:34
DX: T46.4X2A Poisoning by angiotensin-converting-enzyme inhibitors, intentional self-harm, initial encounter (principal); E11.9 Type 2 diabetes mellitus without complications; F32.A Depression, unspecified
CPT/HCPCS: 36000; 36415; 80053; 80143; 80179; 80307; 81001; 82077; 82947; 83036; 85025; 90791; 93005; 93041; 96372; 99285; Q3014; J1817; A9270-GY